=== PATIENT | male | born 1950 | race Caucasian/White ===

== ENCOUNTER 2018-06-09 04:48 | Emergency (ER) | payer BC, MEDICARE ==
[~2018-06-09] VITALS: Ht 182.9 cm; Wt 90.7 kg
[~2018-06-09 04:48] MED LIST: ATORVASTATIN CA10 MG ORAL; Albuterol/Ipratropium 3ml neb HHN ONE; Solu-MEDROL 125mg Inj IVP ONE
[2018-06-09 04:50] VITALS: BP 174/50
--- NOTE | 2018-06-09 04:50 | NUR ---
ED Nurse Note: BIBA from home c/o SOB, wheezing since 2 weeks, worsen last night. breathing tx with EMS, sat 98%. 2 albuterol neb given in the field. pt hooked on monitor, bp elevated to 174/50, other vs within normal limit. pt is aox4. breathing nebulization connected to 6L/min oxygen. noted bilateral wheezes. ermsd on bedside. rt on bedside. will continue to monitor.
--- NOTE | 2018-06-09 04:53 | Emergency Room Report ---
History of Present Illness General Chief Complaint: Dyspnea/Respdistress Source: Patient Present Illness HPI Patient is a 68-year-old male presented after increased difficulty breathing. Patient was noted to have increased symptoms of her past 1 week. Patient denies any fever. He reports having intermittent symptoms initially which worsened last night. He reports having increased productive cough with yellow- green sputum. He had recently been taking oral antibiotics but did finish the course.Patient had been brought in by EMS and had been given breathing treatment with albuterol prior to arrival with reported some improvement in respiratory status. Patient is a former smoker and quit approximately 2 months ago.Patient had been recently prescribed albuterol approximately 2 weeks ago Patient had been followed by Dr. Ad Calixto Allergies: Coded Allergies: No Known Allergies (Unverified , 06/09/18) Patient History Past Medical History: see triage record Reviewed Nursing Documentation: PMH: Agreed; PSxH: Agreed Nursing Documentation-PMH Past Medical History: No History, Except For Hx Cardiac Problems: No - cancer Hx Hypertension: Yes Review of Systems All Other Systems: negative except mentioned in HPI Physical Exam Vital Signs Date Time Temp Pulse Resp B/P (MAP) Pulse Ox O2 Delivery O2 Flow Rate FiO2 06/09/18 04:41 98.1 104 26 182/94 88 Room Air Sp02 EP Interpretation: reviewed, normal General Appearance: normal inspection, well appearing, alert, GCS 15, mild distress Head: atraumatic ENT: normal ENT inspection, hearing grossly normal, normal voice Neck: normal inspection, full range of motion, supple, no bony tend Respiratory: normal inspection, no respiratory distress, no retraction, wheezing Cardiovascular #1: regular rate, rhythm, no edema Gastrointestinal: normal inspection, normal bowel sounds, non tender, soft, no guarding, no hernia Genitourinary: no CVA tenderness Musculoskeletal: normal inspection, back normal, normal range of motion Neurologic: normal inspection, alert, oriented x3, responsive, obstetrics/gynecology nurse III-XII nml as tested, speech normal Psychiatric: normal inspection, judgement/insight normal, mood/affect normal Skin: normal inspection, normal color, no rash Medical Decision Making Diagnostic Impression: Primary Impression: COPD exacerbation ER Course Patient presented for shortness of breath. Differential included but was not limited to anemia, pneumonia, pneumothorax, myocardial infarction, pericardial effusion, congestive heart failure, acidosis. Because of complexity of patient' s case laboratory testing and imaging studies were ordered.Patient was noted to be taking steroid inhalers as well as albuterol at home. He was given IV steroids as well as breathing treatments with improvement in his respirations. He was noted to have good air movement. Labs Test 06/09/18 04:45 White Blood Count 9.3 K/UL (4.8-10.8) Red Blood Count 4.44 M/UL (4.70-6.10) Hemoglobin 14.8 G/DL (14.2-18.0) Hematocrit 44.2 % (42.0-52.0) Mean Corpuscular Volume 100 FL (80-99) Mean Corpuscular Hemoglobin 33.4 PG (27.0-31.0) Mean Corpuscular Hemoglobin Concent 33.5 G/DL (32.0-36.0) Red Cell Distribution Width 12.4 % (11.6-14.8) Platelet Count 196 K/UL (150-450) Mean Platelet Volume 8.4 FL (6.5-10.1) Neutrophils (%) (Auto) 59.9 % (45.0-75.0) Lymphocytes (%) (Auto) 23.4 % (20.0-45.0) Monocytes (%) (Auto) 8.2 % (1.0-10.0) Eosinophils (%) (Auto) 6.6 % (0.0-3.0) Basophils (%) (Auto) 1.9 % (0.0-2.0) Sodium Level 147 MMOL/L (136-145) Potassium Level 2.8 MMOL/L (3.5-5.1) Chloride Level 113 MMOL/L (98-107) Carbon Dioxide Level 23 MMOL/L (21-32) Anion Gap 11 mmol/L (5-15) Blood Urea Nitrogen 16 mg/dL (7-18) Creatinine 0.9 MG/DL (0.55-1.30) Estimat Glomerular Filtration Rate > 60 mL/min (>60) Glucose Level 93 MG/DL (74-106) Calcium Level 7.7 MG/DL (8.5-10.1) EKG Diagnostic Results Rate: tachycardiac - 114 Rhythm: NSR ST Segments: no acute changes ASA given to the pt in ED: No Rhythm Strip Diag. Results EP Interpretation: yes Rhythm: NSR, no PVC's, no ectopy Last Vital Signs Date Time Temp Pulse Resp B/P (MAP) Pulse Ox O2 Delivery O2 Flow Rate FiO2 06/09/18 04:41 98.1 104 26 182/94 88 Room Air Status: improved Disposition: HOME, SELF-CARE Condition: Stable Aidan Rodriguez MD Jun 09, 2018 04:53
[2018-06-09] MEDS ORDERED: FISH OIL 1,0001 EAC4 ORAL (04:58)
[2018-06-09] MEDS ORDERED: ASPIR 8181 MG ORAL (04:58)
[2018-06-09] MEDS ORDERED: LISINOPRIL5 MG ORAL (04:58)
[2018-06-09] MEDS ORDERED: Solu-MEDROL 125mg Inj IVP ONE (05:00)
[2018-06-09] MEDS ORDERED: Albuterol/Ipratropium 3ml neb HHN ONE ×3 (05:00→06:00)
--- NOTE | 2018-06-09 05:20 | NUR ---
ED Nurse Note: equipment tech on bedside.
[2018-06-09 05:38] LABS: BASOPHILS % (AUTO) 1.9 % (0.0-2.0); EOSINOPHILS % (AUTO) 6.6 % (0.0-3.0); HEMATOCRIT 44.2 % (42.0-52.0); HEMOGLOBIN 14.8 G/DL (14.2-18.0); LYMPHOCYTES % (AUTO) 23.4 % (20.0-45.0); MEAN CORPUSCULAR VOLUME 100 FL (80-99); MONOCYTES % (AUTO) 8.2 % (1.0-10.0); NEUTROPHILS % (AUTO) 59.9 % (45.0-75.0); PLATELET COUNT 196 K/UL (150-450); RED BLOOD COUNT 4.44 M/UL (4.70-6.10); RED CELL DISTRIBUTION WIDTH 12.4 % (11.6-14.8); WHITE BLOOD COUNT 9.3 K/UL (4.8-10.8)
[2018-06-09 05:47] LABS: ANION GAP 11 mmol/L (5-15); BLOOD UREA NITROGEN 16 mg/dL (7-18); CALCIUM 7.7 MG/DL (8.5-10.1); CARBON DIOXIDE 23 MMOL/L (21-32); CHLORIDE 113 MMOL/L (98-107); CREATININE 0.9 MG/DL (0.55-1.30); POTASSIUM 2.8 MMOL/L (3.5-5.1); SODIUM 147 MMOL/L (136-145)
[2018-06-09 05:59] LABS: ALANINE AMINOTRANSFERASE 19 U/L (12-78); ALBUMIN 3.2 G/DL (3.4-5.0); ALBUMIN/GLOBULIN RATIO 1.1 (1.0-2.7); ALKALINE PHOSPHATASE 65 U/L (46-116); ASPARTATE AMINO TRANSFERASE 17 U/L (15-37); BILIRUBIN,TOTAL 0.5 MG/DL (0.2-1.0)
[2018-06-09] MEDS ORDERED: PREDNISONE20 MG ORAL (06:15)
--- NOTE | 2018-06-09 06:21 | NUR ---
ED Nurse Note: rt on bedside doing the breathiong tx. pt tolerate the procedure well. will continue to monitor
[2018-06-09 06:24] VITALS: BP 122/72
[2018-06-09 06:32] VITALS: BP 122/72
--- NOTE | 2018-06-09 06:32 | NUR ---
ED Nurse Note: pt was cleared for discharge by arelis. pt stated he feels a lot better now. discharge instruction and prescription explained and pt able to verbalize understanding. iv and id band removed. pt able to walk with no sob noted. pt leth the ed accompanied by housemate with all his belongings.
--- NOTE | 2018-06-09 11:44 | Diagnostic Imaging Report ---
Indication: Dyspnea Comparison: None A single view chest radiograph was obtained. Findings: Cardiomediastinal appearance is within normal limits for age. The lungs are clear. Pulmonary vascularity is appropriate. The diaphragmatic contour is smooth and costophrenic angles are sharp. No pleural effusions are identified. The bones are unremarkable. Impression: No acute findings
[2018-06-09] MEDS ORDERED: ROBAFEN CF LIQ118 ML PO (12:25)
== END 2018-06-09 06:32 | disposition home or self-care (01) ==
LOC: EDBD 04:48 → EMR 05:38
DX: J44.1 Chronic obstructive pulmonary disease with (acute) exacerbation (principal); I10 Essential (primary) hypertension
CPT/HCPCS: 36415; 71045; 80053; 83605; 83880; 84484; 85025; 86710; 86850; 86900; 86901; 87040; 94640; 94664; 96374; 96375; 99284; J2930; J7620; J8499

== ENCOUNTER 2018-06-09 12:19 | Inpatient (IN) | payer BC ==
[~2018-06-09] VITALS: Ht 175.3 cm; Wt 89.0 kg
[~2018-06-09 12:19] MED LIST changes: +ASPIR 8181 MG ORAL; -Albuterol/Ipratropium 3ml neb HHN ONE; +FISH OIL 1,0001 EAC4 ORAL; +LISINOPRIL5 MG ORAL; +PREDNISONE20 MG ORAL; -Solu-MEDROL 125mg Inj IVP ONE
[2018-06-09] MEDS ORDERED: ROBAFEN CF LIQ118 ML PO (12:25)
[2018-06-09 12:30] VITALS: BP 142/74
[2018-06-09] MEDS ORDERED: Albuterol ud Inhalation HHN ONE (12:45)
[2018-06-09] MEDS ORDERED: Ipratropium 0.02% Inh Soln 2.5ml UD HHN ONE (12:45)
[2018-06-09 13:10] LABS: HEMATOCRIT 43.8 % (42.0-52.0); HEMOGLOBIN 14.4 G/DL (14.2-18.0); MEAN CORPUSCULAR VOLUME 100 FL (80-99); PLATELET COUNT 200 K/UL (150-450); RED BLOOD COUNT 4.37 M/UL (4.70-6.10); RED CELL DISTRIBUTION WIDTH 12.7 % (11.6-14.8); WHITE BLOOD COUNT 10.8 K/UL (4.8-10.8)
[2018-06-09 13:20] LABS: APPEARANCE,URINE CLEAR; BILIRUBIN, URINE NEGATIVE (NEGATIVE); GLUCOSE, URINE (UA) 2+ (NEGATIVE); KETONES,URINE 1+ (NEGATIVE); LEUKOCYTE ESTERASE ,URINE NEGATIVE (NEGATIVE); NITRITE,URINE NEGATIVE (NEGATIVE); PH,URINE 5 (4.5-8.0); PROTEIN,URINE 2+ (NEGATIVE); UROBILINOGEN,URINE NORMAL MG/DL (0.0-1.0)
[2018-06-09 13:29] LABS: ANION GAP 14 mmol/L (5-15); BLOOD UREA NITROGEN 17 mg/dL (7-18); CALCIUM 9.6 MG/DL (8.5-10.1); CARBON DIOXIDE 25 MMOL/L (21-32); CHLORIDE 105 MMOL/L (98-107); CREATININE 1.5 MG/DL (0.55-1.30); POTASSIUM 4.6 MMOL/L (3.5-5.1); SODIUM 143 MMOL/L (136-145)
[2018-06-09 13:32] LABS: COLOR,URINE YELLOW
--- NOTE | 2018-06-09 13:39 | Diagnostic Imaging Report ---
Indication: Dyspnea Comparison: 06/09/2018 A single view chest radiograph was obtained. Findings: No change evident. Lungs are clear. Heart size is normal. Bones are slightly osteopenic. IMPRESSION: No acute findings
[2018-06-09 13:57] LABS: ALANINE AMINOTRANSFERASE 23 U/L (12-78); ALBUMIN 4.1 G/DL (3.4-5.0); ALKALINE PHOSPHATASE 83 U/L (46-116); ASPARTATE AMINO TRANSFERASE 20 U/L (15-37); BILIRUBIN,TOTAL 0.4 MG/DL (0.2-1.0); CKMB 3.2 NG/ML (0.0-3.6); CREATINE KINASE 89 U/L (26-308)
[2018-06-09 14:30] VITALS: BP 152/84
[2018-06-09 14:51] VITALS: BP 129/91
[2018-06-09 16:00] VITALS: BP 139/77
--- NOTE | 2018-06-09 19:11 | History & Physical ---
History and Physical History & Physicial #[id number] Dx: COPD exacerbation - Solumderol 40mg IV BID, Nebs TID and PRN Vishnu Sullivan MD Jun 09, 2018 19:11
[2018-06-09] MEDS ORDERED: Albuterol/Ipratropium 3ml neb HHN PRN (19:15)
[2018-06-09] MEDS ORDERED: Zolpidem 5mg tab ORAL PRN (19:15)
--- NOTE | 2018-06-09 19:21 | Consultation ---
Consult Note Assessment/Plan DICT # [id number] Pancho Feng MD Jun 09, 2018 19:21
[2018-06-09] MEDS: Albuterol/Ipratropium 3ml neb HHN SCH (19:56)
[2018-06-09 20:00] VITALS: BP 160/95
--- NOTE | 2018-06-09 20:45 | Consultation ---
DATE OF CONSULTATION: 06/09/2018 PULMONARY CONSULTATION CONSULTING PHYSICIAN: Pancho Feng M.D. HISTORY OF PRESENT ILLNESS: The patient is a 68-year-old male, recent former smoker with a history of colon cancer, status post resection 20 years ago in clinical remission, presenting with one week of shortness of breath. He initially started having cough, congestion, a yellow sputum a week ago. He saw Dr. Ad Calixto, his photo tube assembler. He had a chest x-ray and spirometry done in the office. He was given Flovent, p.r.n. Ventolin, Z-Randy, and a course of steroids. His symptoms improved, but then got worse. He came to the ER overnight, was seen and evaluated by the ER physician and discharged to home. He came back with persistent symptoms, cough, congestion, and shortness of breath. He is afebrile. His vital signs are stable. White count is 10. Creatinine 1.5, baseline is unknown. Chest x-ray in the emergency department was essentially within normal limits. The patient is admitted for further management of a possible chronic obstructive pulmonary disease exacerbation. PAST MEDICAL HISTORY: 1. Colon cancer, status post resection and chemotherapy greater than 20 years ago. 2. Hyperlipidemia. PAST SURGICAL HISTORY: Hemicolectomy. ALLERGIES: No known drug allergies. MEDICATIONS: Prior to admission medications, aspirin, atorvastatin, lisinopril, and prednisone. Current medications reviewed. SOCIAL HISTORY: Extensive tobacco, none current. No drug or alcohol use. FAMILY HISTORY: Noncontributory. REVIEW OF SYSTEMS: Negative other than history of present illness. PHYSICAL EXAMINATION: VITAL SIGNS: Temperature 98.1, pulse 98, blood pressure 129/91, respiratory rate 18, and saturating 98% on room air. GENERAL: This is a well-developed and well-nourished male, in no acute distress. Awake, alert, and oriented x3. HEENT: Normocephalic and atraumatic. Oropharynx is clear with moist mucous membranes. NECK: Supple without lymphadenopathy or jugular venous distention. CHEST: Clear to auscultation with scattered wheezing. HEART: Regular. ABDOMEN: Soft, nontender, and nondistended. EXTREMITIES: No cyanosis, clubbing, or edema. ANCILLARY DATA: White count 10.8, hemoglobin 14, MCV 100, and platelet count 200. Sodium 143, potassium 4.6, chloride 105, bicarbonate 25, BUN 17, creatinine 1.5, glucose 237, and calcium 9.6. Total bilirubin 0.4, AST 20, ALT 23, and alkaline phosphatase 83. CK is 3.2. Troponin negative. Total protein 8.2, albumin 4.1. Chest x-ray negative. Urinalysis, 2+ protein, 2+ glucose, and 1+ ketone. Toxicology screen negative. Cultures pending. Chest x-ray negative. ASSESSMENT: The patient is a 68-year-old male, former smoker (recently quit), history of colon cancer, status post colon resection, presumed to be in clinical remission for 20 years, hyperlipidemia, presenting with cough and congestion in a week, likely exacerbation of underlying chronic obstructive pulmonary disease, with possible antecedent URI. PROBLEM LIST: 1. Possible chronic obstructive pulmonary disease with acute exacerbation. 2. URI/bronchitis. 3. Abnormal CKD, unclear if acute or chronic. 4. Hyperglycemia. 5. Macrocytic anemia. 6. Colon cancer, status post resection greater than 20 years ago and chemotherapy in clinical remission. TREATMENT PLAN: 1. Optimize pulmonary hygiene/mobilize as tolerated. 2. Titrate down FiO2 to keep saturations greater than 90%. 3. DuoNebs around the clock and p.r.n. 4. Continue Solu-Medrol 40 IV b.i.d., taper as able. 5. Observe off antibiotics with a low threshold to start respiratory coverage. 6. CT scan of the chest ordered, given history of tobacco use and unrelenting cough. 7. Aspiration precautions. 8. DVT prophylaxis. Heparin subcutaneous. 9. Check a rapid flu. 10. The patient should have outpatient workup including PFTs. Dr. Sullivan, thank you for allowing us to assist in the care of your patient. If we may be of any assistance in the future, please do not hesitate to ask. Pancho Feng M.D. DR: BARRINGTON JOB#: [id number] CC:
[2018-06-09] MEDS: Solu-MEDROL 40mg Inj IVP SCH (20:55)
--- NOTE | 2018-06-09 22:00 | History and Physical Report ---
DATE OF ADMISSION: 06/09/2018 REASON FOR ADMISSION: Shortness of breath. HISTORY OF PRESENT ILLNESS: This is a 68-year-old male with longstanding history of smoking, who recently quit and colon cancer, status post hemicolectomy, status post chemotherapy in 2007, who is in remission and hyperlipidemia, who presents to the emergency room for worsening shortness of breath. The patient has been having a 6-month of shortness of breath with productive cough with clear phlegm, mostly in morning. He states that his breathing has becoming worse and he is having difficulty breathing along with wheezing. He does have a runny nose. He denies fevers or congestion. He recently was seen by his PCP and had pulmonary function test after which he was given two inhalers, albuterol and Atrovent. He had a chest x-ray as well as an outpatient. The chest is normal. He was given azithromycin for his productive cough with no relief. He went to emergency room yesterday at approximately 4:30 in the morning and discharged home at 7 a.m. after several nebulizer breathing treatments with prednisone 10 mg as well as Atrovent/albuterol. The patient returned to the hospital for worsening shortness of breath later in the day today. He denies having a flu shot. PAST MEDICAL HISTORY: Colon cancer, status post colectomy and hyperlipidemia. PAST SURGICAL HISTORY: Hemicolectomy for colon cancer in 2007. MEDICATIONS: Reviewed in [facility] include albuterol, Atrovent, and prednisone. ALLERGIES: No known drug allergies. FAMILY HISTORY: Noncontributory. REVIEW OF SYSTEMS: A 12-point review of systems is negative except for pertinent positives as mentioned above. PHYSICAL EXAMINATION: VITAL SIGNS: Temperature is 98.1 degrees, pulse is 57, respiratory rate 18, blood pressure 139/77, and O2 sat 97% on two liters. GENERAL: In no acute distress. The patient is alert, awake, and oriented x3. HEENT: Normocephalic/atrumatic. NECK: Supple. No JVD. LUNGS: Clear to auscultation. No wheezing. CARDIOVASCULAR: Regular rate and rhythm. Normal S1 and S2. ABDOMEN: Soft, nontender, and nondistended. EXTREMITIES: No clubbing, cyanosis, or edema. PSYCHIATRIC: Appropriate mood and affect. SKIN: No jaundice or cyanosis. LABORATORY STUDIES AND IMAGING DATA: Chest x-ray shows no infiltrate. CBC, white count is 10.8, hemoglobin is 14.4, hematocrit is 42.8, MCV of 100, platelet count 200,000, and neutrophils 96%. BMP, sodium 143, potassium 4.6, chloride 105, CO2 is 25, BUN of 17, creatinine is 1.5, and glucose is 237. LFTs are within normal limits. ASSESSMENT: 1. Worsening shortness of breath, likely chronic obstructive pulmonary disease when the patient is not in exacerbation versus reactive airway disease. Pending formal PFTs. 2. Elevated blood sugar - rule out diabetes. 3. Azotemia, acute kidney injury versus chronic kidney disease. 4. Macrocytosis. We will check thyroid. 5. History of colon cancer, status post hemicolectomy. 6. Hyperlipidemia. PLAN: 1. Admit the patient to Med/Surg unit. 2. Solu-Medrol 40 mg IV b.i.d. 3. DuoNeb q.8 h. [id number] and q.6 h. p.r.n. 4. Pulmonary consult with Dr. Feng. 5. The patient will be upon discharge. 6. Chest x-ray showed no active infiltrate. 7. The patient needs pulmonary function test after resolution of COPD exacerbation. 8. DVT prophylaxis with SCDs. Full code. Vishnu Sullivan MD DR: JAJA JOB#: [id number] CC:
[2018-06-09 22:45] VITALS: BP 148/83
[2018-06-10] VITALS: BP 144/78
[2018-06-10 04:00] VITALS: BP 156/91
[2018-06-10 06:30] LABS: HEMATOCRIT 37.2 % (42.0-52.0); HEMOGLOBIN 12.5 G/DL (14.2-18.0); MEAN CORPUSCULAR VOLUME 100 FL (80-99); PLATELET COUNT 176 K/UL (150-450); RED BLOOD COUNT 3.73 M/UL (4.70-6.10); RED CELL DISTRIBUTION WIDTH 12.8 % (11.6-14.8); WHITE BLOOD COUNT 19.1 K/UL (4.8-10.8)
[2018-06-10 06:40] LABS: ANION GAP 4 mmol/L (5-15); BLOOD UREA NITROGEN 14 mg/dL (7-18); CALCIUM 9.3 MG/DL (8.5-10.1); CARBON DIOXIDE 28 MMOL/L (21-32); CHLORIDE 110 MMOL/L (98-107); CREATININE 1.1 MG/DL (0.55-1.30); POTASSIUM 5.1 MMOL/L (3.5-5.1); SODIUM 142 MMOL/L (136-145)
[2018-06-10] MEDS: Albuterol/Ipratropium 3ml neb HHN SCH ×3 (07:15→19:33)
[2018-06-10 08:00] VITALS: BP 151/81
[2018-06-10] MEDS: Solu-MEDROL 40mg Inj IVP SCH (08:34)
--- NOTE | 2018-06-10 10:56 | Diagnostic Imaging Report ---
Indication: Shortness of breath Technique: Continuous helical transaxial imaging of the chest was obtained from the thoracic inlet to the upper abdomen. No intravenous contrast was administered. Coronal 2-D reformats were also obtained. Total Dose length Product (DLP): 874.[address] Dose Index Volume (CTDIvol): 21.04 mGy Comparison: none Findings: Lungs are clear slightly hyperexpanded. Minimal atelectasis versus scarring noted at the lung bases anteriorly. Minimal bronchiectasis noted. Aorta is moderately calcified. Gallbladder is contracted. IMPRESSION: COPD/emphysema. Atherosclerotic vascular disease Minimal scarring versus atelectasis at the lung bases The CT scanner at [facility] is accredited by the [employer] and the scans are performed using dose optimization techniques as appropriate to a performed exam including Automatic Exposure control.
[2018-06-10 12:00] VITALS: BP 138/78
--- NOTE | 2018-06-10 13:45 | Cardiology Report ---
APPROVED REPORT EKG Measurement Heart [id number] Sinus tachycardia Otherwise normal ECG
--- NOTE | 2018-06-10 14:30 | Emergency Room Report ---
History of Present Illness General Chief Complaint: Dyspnea/Respdistress Source: Patient Present Illness HPI This patient presents for ongoing shortness of breath, cough and congestion. The patient was seen earlier this morning in the emergency department for COPD exacerbation and bronchitis. He states he had been doing well and he slept for a while but then after breakfast developed dyspnea and shortness of breath. The patient had been on an inhaler and steroids for COPD. He has had some coughing. He does have a history of cancer but is in remission. He denies fever or chills. He denies nausea or vomiting. He denies chest pain or abdominal pain. He has no other complaints. Allergies: Coded Allergies: No Known Allergies (Unverified , 06/09/18) Patient History Past Medical History: see triage record, HTN, COPD, other - Colon CA Social History: Denies: smoking, alcohol use, drug use Reviewed Nursing Documentation: PMH: Agreed; PSxH: Agreed Nursing Documentation-PMH Past Medical History: No History, Except For Hx Cardiac Problems: No Hx Hypertension: Yes Hx COPD: Yes Hx Neurological Problems: No Review of Systems All Other Systems: negative except mentioned in HPI Physical Exam Vital Signs Date Time Temp Pulse Resp B/P (MAP) Pulse Ox O2 Delivery O2 Flow Rate FiO2 06/09/18 12:22 98.1 118 28 168/81 95 Nasal Cannula 2.0 06/09/18 12:30 96 Sp02 EP Interpretation: reviewed, normal General Appearance: no apparent distress, alert, GCS 15, non-toxic Head: normocephalic, atraumatic Eyes: bilateral eye normal inspection, bilateral eye PERRL ENT: hearing grossly normal, normal pharynx, no angioedema, normal voice Neck: full range of motion, supple/symm/no masses Respiratory: chest non-tender, no respiratory distress, no retraction, no accessory muscle use, wheezing, expiration, other - tachypnea Cardiovascular #1: regular rate, rhythm, no edema Gastrointestinal: normal bowel sounds, non tender, soft, non-distended, no guarding, no rebound Rectal: deferred Musculoskeletal: back normal, gait/station normal, normal range of motion, non- tender, calf tenderness Neurologic: alert, oriented x3, responsive, motor strength/tone normal, sensory intact, speech normal Psychiatric: judgement/insight normal, memory normal, mood/affect normal, no suicidal/homicidal ideation Skin: normal color, no rash, warm/dry, well hydrated Medical Decision Making Diagnostic Impression: Primary Impression: COPD exacerbation ER Course This patient presents with persistent and recurrent wheezing in the setting of COPD. The patient failed outpatient treatment and presents with recurrent wheezing. The patient was given albuterol and Atrovent nebulizer treatments. He is given prednisone orally. He is admitted for further pulmonary hygiene and further evaluation and treatment by pulmonology. See electronic medical record for laboratory results. EKG Diagnostic Results Rate: tachycardiac Rhythm: other - S.tachycardia ST Segments: no acute changes Rhythm Strip Diag. Results EP Interpretation: yes Rate: 110;s Rhythm: no PVC's, no ectopy, other - s.tachycardia Chest X-Ray Diagnostic Results Chest X-Ray Diagnostic Results : Chest X-Ray Ordered: Yes # of Views/Limited/Complete: 1 View Indication: Shortness of Breath EP Interpretation: Yes Interpretation: no consolidation, no effusion, no pneumothorax, no acute cardiopulmonary disease Impression: No acute disease Electronically Signed by: Ashley Roberson DO CT/MRI/US Diagnostic Results CT/MRI/US Diagnostic Results : Imaging Test Ordered: CT chest Impression No PE. Findings consistent with emphysema. See official report. Last Vital Signs Date Time Temp Pulse Resp B/P (MAP) Pulse Ox O2 Delivery O2 Flow Rate FiO2 06/10/18 13:41 94 20 98 Nasal Cannula 1.0 24 06/10/18 12:00 97.6 138/78 (98) Disposition: ADMITTED INPATIENT Condition: Serious Referrals: Vishnu Sullivan MD (PCP) Ashley Roberson DO Jun 10, 2018 14:30
--- NOTE | 2018-06-10 15:55 | Pulmonology Progress Note ---
Assessment/Plan Problems: (1) COPD exacerbation Assessment/Plan ASSESSMENT: The patient is a 68-year-old male, former smoker (recently quit), history of colon cancer, status post colon resection, presumed to be in clinical remission for 20 years, hyperlipidemia, presenting with cough and congestion in a week, likely exacerbation of underlying chronic obstructive pulmonary disease, with possible antecedent URI. PROBLEM LIST: 1. Possible chronic obstructive pulmonary disease with acute exacerbation. 2. URI/bronchitis. 3. DAISY - RESOLVED 4. Hyperglycemia. 5. Macrocytic anemia. 6. Colon cancer, status post resection greater than 20 years ago and chemotherapy in clinical remission. 7. Leukocytosis, likely 2/2 steroids TREATMENT PLAN: 1. Optimize pulmonary hygiene/mobilize as tolerated. 2. Titrate down FiO2 to keep saturations greater than 90%. 3. DuoNebs around the clock and p.r.n. 4. D/C Solu-Medrol, start Pred 40 and taper. 5. Observe off antibiotics with a low threshold to start respiratory coverage. 6. Aspiration precautions. 7. DVT prophylaxis. SCD 8. The patient should have outpatient workup including PFTs. Subjective Allergies: Coded Allergies: No Known Allergies (Unverified , 06/09/18) Subjective AFVSS O2 needs stable Less cough, mobilizing clear secretions Less SOB, no wheezing, no FC CT without infiltrate or mass + emphysema WCt increased Objective Last 24 Hour Vital Signs Date Time Temp Pulse Resp B/P (MAP) Pulse Ox O2 Delivery O2 Flow Rate FiO2 06/10/18 13:41 94 20 98 Nasal Cannula 1.0 24 06/10/18 13:29 92 18 95 Nasal Cannula 1.0 24 06/10/18 12:00 97.6 92 18 138/78 (98) 93 06/10/18 09:00 Nasal Cannula 2.0 06/10/18 08:00 97.8 96 18 151/81 (104) 96 06/10/18 07:29 97 20 100 Nasal Cannula 2.0 28 06/10/18 07:16 Nasal Cannula 2.0 28 06/10/18 07:16 97 20 96 Nasal Cannula 2.0 28 06/10/18 07:16 96 Nasal Cannula 2.0 28 06/10/18 04:00 98.0 95 20 156/91 (112) 96 06/10/18 02:35 97 20 98 Nasal Cannula 2.0 28 06/10/18 02:25 95 20 96 Nasal Cannula 2.0 28 06/10/18 00:00 98.3 80 20 144/78 (100) 95 06/09/18 22:45 74 148/83 (104) 95 06/09/18 21:00 Nasal Cannula 2.0 06/09/18 20:04 79 20 92 Nasal Cannula 2.0 28 06/09/18 20:00 92 Nasal Cannula 2.0 28 06/09/18 20:00 Nasal Cannula 2.0 28 06/09/18 20:00 97.9 104 20 160/95 (116) 92 06/09/18 19:58 70 20 92 Nasal Cannula 2.0 28 06/09/18 16:00 98.1 67 18 139/77 (97) 97 06/09/18 15:53 Nasal Cannula 2.0 Intake and Output 06/09/18 06/10/18 19:00 07:00 Intake Total 1850 ml 750 ml Balance 1850 ml 750 ml Intake Oral 850 ml IV Total 1000 ml 750 ml # Voids 3 2 General Appearance: WD/WN, no acute distress HEENT: normocephalic, atraumatic, anicteric, mucous membranes moist Respiratory/Chest: chest wall non-tender, lungs clear - but distant, normal breath sounds, no respiratory distress, no accessory muscle use Cardiovascular: normal peripheral pulses, normal rate, regular rhythm Abdomen: normal bowel sounds, soft, non tender, no organomegaly, non distended , no mass Extremities: no cyanosis, no clubbing, no edema Laboratory Tests 06/09/18 20:55: Arterial Blood pH 7.407, Arterial Blood Partial Pressure CO2 35.0, Arterial Blood Partial Pressure O2 82.3, Arterial Blood HCO3 21.5L, Arterial Blood Oxygen Saturation 95.6, Arterial Blood Base Excess -2.5L, Jayce Test Positive 06/10/18 06:00: White Blood Count 19.1#H, Red Blood Count 3.73L, Hemoglobin 12.5L, Hematocrit 37.2L, Mean Corpuscular Volume 100H, Mean Corpuscular Hemoglobin 33.6H, Mean Corpuscular Hemoglobin Concent 33.7, Red Cell Distribution Width 12.8, Platelet Count 176, Mean Platelet Volume 8.4, Neutrophils (%) (Auto) , Lymphocytes (%) ( Auto) , Monocytes (%) (Auto) , Eosinophils (%) (Auto) , Basophils (%) (Auto) , Differential Total Cells Counted 100, Neutrophils % (Manual) 90H, Lymphocytes % (Manual) 6L, Monocytes % (Manual) 4, Eosinophils % (Manual) 0, Basophils % ( Manual) 0, Band Neutrophils 0, Platelet Estimate Adequate, Platelet Morphology Normal, Macrocytosis 1+, Sodium Level 142, Potassium Level 5.1, Chloride Level 110H, Carbon Dioxide Level 28, Anion Gap 4L, Blood Urea Nitrogen 14, Creatinine 1.1, Estimat Glomerular Filtration Rate > 60, Glucose Level 135#H, Calcium Level 9.3 Current Medications Medications (Trade) Dose Ordered Sig/Ej Route PRN Reason Start Time Stop Time Status Last Admin Dose Admin Acetaminophen (Tylenol) 650 mg Q4H PRN ORAL Mild Pain (Pain Scale 1-3) 06/09/18 19:15 07/09/18 19:14 Albuterol/ Ipratropium (Albuterol/ Ipratropium) 3 ml Q6H PRN HHN Shortness of Breath 06/09/18 19:15 06/14/18 19:14 06/10/18 02:22 Albuterol/ Ipratropium (Albuterol/ Ipratropium) 3 ml TIDRT HHN 06/09/18 19:30 06/14/18 19:29 06/10/18 13:29 Aspirin (ASA) 81 mg DAILY ORAL 06/11/18 09:00 07/11/18 08:59 Atorvastatin Calcium (Lipitor) 10 mg BEDTIME ORAL 06/10/18 21:00 07/10/18 20:59 Bisacodyl (Dulcolax) 10 mg HSPRN PRN RECTAL Constipation 06/09/18 19:15 07/09/18 19:14 Dextrose (Dextrose 50%) 25 ml Q30M PRN IV Hypoglycemia 06/09/18 19:15 07/09/18 19:14 Dextrose (Dextrose 50%) 50 ml Q30M PRN IV Hypoglycemia 06/09/18 19:15 07/09/18 19:14 Lisinopril (Zestril) 5 mg DAILY ORAL 06/11/18 09:00 07/11/18 08:59 Methylprednisolone Sodium Succinate (Solu-MEDROL) 40 mg EVERY 12 HOURS IVP 06/09/18 21:00 07/09/18 20:59 06/10/18 08:34 Ondansetron HCl (Zofran) 4 mg Q6H PRN IVP Nausea & Vomiting 06/09/18 19:15 07/09/18 19:14 Sodium Chloride 1,000 ml @ 75 mls/hr [id number] IV 06/09/18 19:30 07/09/18 19:29 06/10/18 08:36 Zolpidem Tartrate (Ambien) 5 mg HSPRN PRN ORAL Insomnia 06/09/18 19:15 06/16/18 19:14 Pancho Feng MD Jun 10, 2018 15:55
[2018-06-10 15:56] VITALS: BP 151/81
[2018-06-10 20:00] VITALS: BP 138/86
--- NOTE | 2018-06-10 21:56 | Internal Med Progress Note ---
Subjective Physician Name Vishnu Sullivan Attending Physician Vishnu Sullivan MD Current Medications Medications (Trade) Dose Ordered Sig/Ej Route PRN Reason Start Time Stop Time Status Last Admin Dose Admin Acetaminophen (Tylenol) 650 mg Q4H PRN ORAL Mild Pain (Pain Scale 1-3) 06/09/18 19:15 07/09/18 19:14 Albuterol/ Ipratropium (Albuterol/ Ipratropium) 3 ml Q6H PRN HHN Shortness of Breath 06/09/18 19:15 06/14/18 19:14 06/10/18 02:22 Albuterol/ Ipratropium (Albuterol/ Ipratropium) 3 ml TIDRT HHN 06/09/18 19:30 06/14/18 19:29 06/10/18 19:33 Aspirin (ASA) 81 mg DAILY ORAL 06/11/18 09:00 07/11/18 08:59 Atorvastatin Calcium (Lipitor) 10 mg BEDTIME ORAL 06/10/18 21:00 07/10/18 20:59 06/10/18 21:01 Bisacodyl (Dulcolax) 10 mg HSPRN PRN RECTAL Constipation 06/09/18 19:15 07/09/18 19:14 Dextrose (Dextrose 50%) 25 ml Q30M PRN IV Hypoglycemia 06/09/18 19:15 07/09/18 19:14 Dextrose (Dextrose 50%) 50 ml Q30M PRN IV Hypoglycemia 06/09/18 19:15 07/09/18 19:14 Lisinopril (Zestril) 5 mg DAILY ORAL 06/11/18 09:00 07/11/18 08:59 Ondansetron HCl (Zofran) 4 mg Q6H PRN IVP Nausea & Vomiting 06/09/18 19:15 07/09/18 19:14 Prednisone (predniSONE) 40 mg DAILY ORAL 06/11/18 09:00 07/11/18 08:59 Sodium Chloride 1,000 ml @ 75 mls/hr [id number] IV 06/09/18 19:30 07/09/18 19:29 06/10/18 21:02 Zolpidem Tartrate (Ambien) 5 mg HSPRN PRN ORAL Insomnia 06/09/18 19:15 06/16/18 19:14 Allergies: Coded Allergies: No Known Allergies (Unverified , 06/09/18) Subjective on 2L O2 still has SUMNER no CP 12 pt ROS neg except above positives Objective Last Vital Signs Date Time Temp Pulse Resp B/P (MAP) Pulse Ox O2 Delivery O2 Flow Rate FiO2 06/10/18 19:49 92 18 98 Room Air 21 06/10/18 15:56 97.8 151/81 (104) 06/10/18 13:41 1.0 General Appearance: WD/WN, no apparent distress EENT: PERRL/EOMI, normal ENT inspection Neck: normal alignment, supple Cardiovascular: regular rhythm, regularly irregular Respiratory/Chest: normal breath sounds, expiratory wheezing Abdomen: non tender, soft Extremities: normal range of motion, non-tender Neurologic: alert, oriented x 3 Laboratory Tests Test 06/10/18 06:00 White Blood Count 19.1 K/UL (4.8-10.8) #H Red Blood Count 3.73 M/UL (4.70-6.10) L Hemoglobin 12.5 G/DL (14.2-18.0) L Hematocrit 37.2 % (42.0-52.0) L Mean Corpuscular Volume 100 FL (80-99) H Mean Corpuscular Hemoglobin 33.6 PG (27.0-31.0) H Mean Corpuscular Hemoglobin Concent 33.7 G/DL (32.0-36.0) Red Cell Distribution Width 12.8 % (11.6-14.8) Platelet Count 176 K/UL (150-450) Mean Platelet Volume 8.4 FL (6.5-10.1) Neutrophils (%) (Auto) % (45.0-75.0) Lymphocytes (%) (Auto) % (20.0-45.0) Monocytes (%) (Auto) % (1.0-10.0) Eosinophils (%) (Auto) % (0.0-3.0) Basophils (%) (Auto) % (0.0-2.0) Differential Total Cells Counted 100 Neutrophils % (Manual) 90 % (45-75) H Lymphocytes % (Manual) 6 % (20-45) L Monocytes % (Manual) 4 % (1-10) Eosinophils % (Manual) 0 % (0-3) Basophils % (Manual) 0 % (0-2) Band Neutrophils 0 % (0-8) Platelet Estimate Adequate Platelet Morphology Normal Macrocytosis 1+ Sodium Level 142 MMOL/L (136-145) Potassium Level 5.1 MMOL/L (3.5-5.1) Chloride Level 110 MMOL/L (98-107) H Carbon Dioxide Level 28 MMOL/L (21-32) Anion Gap 4 mmol/L (5-15) L Blood Urea Nitrogen 14 mg/dL (7-18) Creatinine 1.1 MG/DL (0.55-1.30) Estimat Glomerular Filtration Rate > 60 mL/min (>60) Glucose Level 135 MG/DL (74-106) #H Calcium Level 9.3 MG/DL (8.5-10.1) Intake and Output 06/09/18 06/10/18 18:59 06:59 Intake Total 1850 ml 750 ml Balance 1850 ml 750 ml Intake Oral 850 ml IV Total 1000 ml 750 ml # Voids 3 2 Assessment/Plan Assessment/Plan ASSESSMENT: 1. Worsening shortness of breath, likely chronic obstructive pulmonary disease when the patient is not in exacerbation versus reactive airway disease 2. PreDM (A1C 6.4) 3. Azotemia, acute kidney injury versus chronic kidney disease. 4. Macrocytosis 2/2 alcohol 5. History of colon cancer, status post hemicolectomy. 6. Hyperlipidemia. PLAN: 1. Med/Surg unit. 2. started on Prednisone 40mg Daily 3. DuoNeb q.8 h. [id number] and q.6 h. p.r.n. 4. Pulmonary consult with Dr. Feng. 5. titrate O2 to keep O2 sat > 90% on RA 6. Chest x-ray showed no active infiltrate. 7. The patient needs pulmonary function test after resolution of COPD exacerbation. 8. DVT prophylaxis with SCDs. Full code. Vishnu Sullivan MD Jun 10, 2018 21:56
[2018-06-11] VITALS: BP 148/97
[2018-06-11 04:00] VITALS: BP 156/101
[2018-06-11] MEDS: Albuterol/Ipratropium 3ml neb HHN SCH (06:51)
[2018-06-11 06:52] LABS: BASOPHILS % (AUTO) 0.6 % (0.0-2.0); EOSINOPHILS % (AUTO) 3.4 % (0.0-3.0); HEMATOCRIT 38.2 % (42.0-52.0); HEMOGLOBIN 12.8 G/DL (14.2-18.0); LYMPHOCYTES % (AUTO) 18.3 % (20.0-45.0); MEAN CORPUSCULAR VOLUME 99 FL (80-99); MONOCYTES % (AUTO) 6.4 % (1.0-10.0); NEUTROPHILS % (AUTO) 71.3 % (45.0-75.0); PLATELET COUNT 173 K/UL (150-450); RED BLOOD COUNT 3.84 M/UL (4.70-6.10); RED CELL DISTRIBUTION WIDTH 12.7 % (11.6-14.8); WHITE BLOOD COUNT 14.7 K/UL (4.8-10.8)
[2018-06-11 06:58] VITALS: BP 156/101
[2018-06-11 07:02] LABS: ANION GAP 5 mmol/L (5-15); BLOOD UREA NITROGEN 20 mg/dL (7-18); CALCIUM 8.9 MG/DL (8.5-10.1); CARBON DIOXIDE 30 MMOL/L (21-32); CHLORIDE 109 MMOL/L (98-107); CREATININE 1.2 MG/DL (0.55-1.30); POTASSIUM 4.6 MMOL/L (3.5-5.1); SODIUM 144 MMOL/L (136-145)
[2018-06-11 08:00] VITALS: BP 138/71
[2018-06-11] MEDS ORDERED: Aspirin Baby 81mg ORAL SCH ×2 (09:00)
[2018-06-11] MEDS ORDERED: Lisinopril 2.5mg tab ORAL SCH ×2 (09:00)
--- NOTE | 2018-06-11 09:56 | Pulmonology Progress Note ---
Assessment/Plan Problems: (1) COPD exacerbation Assessment/Plan ASSESSMENT: The patient is a 68-year-old male, former smoker (recently quit), history of colon cancer, status post colon resection, presumed to be in clinical remission for 20 years, hyperlipidemia, presenting with cough and congestion in a week, likely exacerbation of underlying chronic obstructive pulmonary disease, with possible antecedent URI. PROBLEM LIST: 1. Possible chronic obstructive pulmonary disease with acute exacerbation. 2. URI/bronchitis. 3. DAISY - RESOLVED 4. Hyperglycemia. 5. Macrocytic anemia. 6. Colon cancer, status post resection greater than 20 years ago and chemotherapy in clinical remission. 7. Leukocytosis, likely 2/2 steroids - IMPROVED TREATMENT PLAN: 1. Optimize pulmonary hygiene/mobilize as tolerated. 2. PRN O2 3. DuoNebs around the clock and p.r.n. 4. Pred 40 and taper. 5. Observe off antibiotics with a low threshold to start respiratory coverage. 6. Aspiration precautions. 7. DVT prophylaxis. SCD 8. The patient should have outpatient workup including PFTs. 9. PREDNISONE, SYMBICORT AND PRN VENTOLIN SENT TO PATIENT'S PHARMACY, OK TO D/C FROM A PULMONARY STANDPOINT, WILL F/U WITH ME IN 1-2 WEEKS OR EARLIER PRN, WILL HAVE OUTPATIENT PFT's AND ADJUSTMENT OF HIS INHALER REGIMEN ACCORDINGLY Subjective Allergies: Coded Allergies: No Known Allergies (Unverified , 06/09/18) Subjective AFVSS on RA WCt better Minimal cough no SOB no wheezing mobilizing no FC Objective Last 24 Hour Vital Signs Date Time Temp Pulse Resp B/P (MAP) Pulse Ox O2 Delivery O2 Flow Rate FiO2 06/11/18 08:53 138/71 06/11/18 08:00 97.9 93 19 138/71 (93) 93 06/11/18 07:00 83 16 97 Room Air 21 06/11/18 06:58 97.2 76 20 156/101 (119) 93 06/11/18 06:51 82 17 93 Room Air 21 06/11/18 06:51 Room Air 21 06/11/18 06:51 93 Room Air 21 06/11/18 04:00 97.2 76 20 156/101 (119) 93 06/11/18 00:00 98.0 83 20 148/97 (114) 93 06/10/18 21:00 Nasal Cannula 1.0 06/10/18 20:00 98.0 94 20 138/86 (103) 93 06/10/18 19:49 92 18 98 Room Air 21 06/10/18 19:33 95 Room Air 21 06/10/18 19:33 91 18 95 Room Air 21 06/10/18 19:33 Room Air 21 06/10/18 15:56 97.8 92 19 151/81 (104) 97 06/10/18 13:41 94 20 98 Nasal Cannula 1.0 24 06/10/18 13:29 92 18 95 Nasal Cannula 1.0 24 06/10/18 12:00 97.6 92 18 138/78 (98) 93 Intake and Output 06/10/18 06/11/18 19:00 07:00 Intake Total 615 ml 1025 ml Balance 615 ml 1025 ml Intake Oral 540 ml IV Total 75 ml 225 ml Other 800 ml # Voids 4 3 General Appearance: WD/WN, no acute distress HEENT: normocephalic, atraumatic, anicteric, mucous membranes moist Respiratory/Chest: chest wall non-tender, lungs clear, normal breath sounds, no respiratory distress, no accessory muscle use Cardiovascular: normal peripheral pulses, normal rate, regular rhythm Abdomen: normal bowel sounds, soft, non tender, no organomegaly, non distended , no mass Extremities: no cyanosis, no clubbing, no edema Laboratory Tests 06/11/18 06:05: White Blood Count 14.7H, Red Blood Count 3.84L, Hemoglobin 12.8L, Hematocrit 38.2L, Mean Corpuscular Volume 99, Mean Corpuscular Hemoglobin 33.4H, Mean Corpuscular Hemoglobin Concent 33.6, Red Cell Distribution Width 12.7, Platelet Count 173, Mean Platelet Volume 8.6, Neutrophils (%) (Auto) 71.3, Lymphocytes (% ) (Auto) 18.3L, Monocytes (%) (Auto) 6.4, Eosinophils (%) (Auto) 3.4H, Basophils (%) (Auto) 0.6, Sodium Level 144, Potassium Level 4.6, Chloride Level 109H, Carbon Dioxide Level 30, Anion Gap 5, Blood Urea Nitrogen 20H, Creatinine 1.2, Estimat Glomerular Filtration Rate > 60, Glucose Level 85, Calcium Level 8.9 Current Medications Medications (Trade) Dose Ordered Sig/Ej Route PRN Reason Start Time Stop Time Status Last Admin Dose Admin Acetaminophen (Tylenol) 650 mg Q4H PRN ORAL Mild Pain (Pain Scale 1-3) 06/09/18 19:15 07/09/18 19:14 Albuterol/ Ipratropium (Albuterol/ Ipratropium) 3 ml Q6H PRN HHN Shortness of Breath 06/09/18 19:15 06/14/18 19:14 06/10/18 02:22 Albuterol/ Ipratropium (Albuterol/ Ipratropium) 3 ml TIDRT HHN 06/09/18 19:30 06/14/18 19:29 06/11/18 06:51 Aspirin (ASA) 81 mg DAILY ORAL 06/11/18 09:00 07/11/18 08:59 06/11/18 08:52 Atorvastatin Calcium (Lipitor) 10 mg BEDTIME ORAL 06/10/18 21:00 07/10/18 20:59 06/10/18 21:01 Bisacodyl (Dulcolax) 10 mg HSPRN PRN RECTAL Constipation 06/09/18 19:15 07/09/18 19:14 Dextrose (Dextrose 50%) 25 ml Q30M PRN IV Hypoglycemia 06/09/18 19:15 07/09/18 19:14 Dextrose (Dextrose 50%) 50 ml Q30M PRN IV Hypoglycemia 06/09/18 19:15 07/09/18 19:14 Lisinopril (Zestril) 5 mg DAILY ORAL 06/11/18 09:00 07/11/18 08:59 06/11/18 08:53 Ondansetron HCl (Zofran) 4 mg Q6H PRN IVP Nausea & Vomiting 06/09/18 19:15 07/09/18 19:14 Prednisone (predniSONE) 40 mg DAILY ORAL 06/11/18 09:00 07/11/18 08:59 06/11/18 08:53 Zolpidem Tartrate (Ambien) 5 mg HSPRN PRN ORAL Insomnia 06/09/18 19:15 06/16/18 19:14 Pancho Feng MD Jun 11, 2018 09:56
--- NOTE | 2018-06-11 12:04 | Discharge Summary ---
Discharge Summary Hospital Course Date of Admission Jun 09, 2018 at 13:32 Date of Discharge Admitting Diagnosis COPD EXACERBATION HPI Everardo Mireles is a 68 year old male who was admitted on Jun 09, 2018 at 13: 32 for Chronic Obstructive Pulmonary Disease Exacerbation. Patient was seen by Pulmonary - Dr. Feng started on Solumedrol IV, Nebs. CXR showed no infiltrate. Patient stable for dc with Prednisone taper, albuterol/Atrovent and followup with Dr. Feng. He was noted to be prediabetic A1C 6.4 and I recommended Metformin. Discharge Medications Continued Medications: Aspirin* (Aspir 81*) 81 Mg Tablet.dr 81 MG ORAL DAILY, TAB (This prescription has been renewed) Atorvastatin Calcium* (Lipitor*) 10 Mg Tablet 10 MG ORAL BEDTIME, TAB (This prescription has been renewed) Lisinopril (Lisinopril*) 5 Mg Tablet 5 MG ORAL DAILY, TAB (This prescription has been renewed) [place]-3 Fatty Acids/Fish Oil (Fish Oil 1,000 Mg Softgel) 1 Each Capsule 1 CAP ORAL DAILY, #30 CAP 0 Refills (This prescription has been renewed) Prednisone* (Prednisone*) 20 Mg Tablet 40 MG ORAL DAILY, #10 TAB Discharge Condition Upon Discharge: stable Discharge Disposition Patient was discharged to Home (01) Discharge Diagnoses: (1) COPD exacerbation Vishnu Sullivan MD Jun 11, 2018 12:04
[2018-06-11 12:12] VITALS: BP 130/84
[2018-06-11 12:25] VITALS: BP 140/101
== END 2018-06-11 12:45 | disposition home or self-care (01) | DRG 191 ==
LOC: EMR 13:25 → 4E 13:32 → EDBEDREQ 14:31 → 4E 15:00
DX: J44.1 Chronic obstructive pulmonary disease with (acute) exacerbation (principal); N17.9 Acute kidney failure, unspecified; D53.9 Nutritional anemia, unspecified; D72.829 Elevated white blood cell count, unspecified; R73.03 Prediabetes; Z85.038 Personal history of other malignant neoplasm of large intestine; Z87.891 Personal history of nicotine dependence; E78.5 Hyperlipidemia, unspecified
CPT/HCPCS: 36415; 36600; 71045; 71250; 80048; 80053; 80307; 81003; 82550; 82553; 82607; 82746; 82803; 83036; 84484; 85007; 85025; 87070; 87205; 93005; 94640; 94664; 94760; 96360; 96361; 99285; J7620